=== PATIENT | female | born 1990 | race African-American/Black ===

== ENCOUNTER 2020-07-22 08:09 | Outpatient (REF) | payer OTHER, SELFPAY ==
[2020-07-22 13:48] LABS: CT PCR NOT DETECTED (Not Detect.); NG PCR NOT DETECTED (Not Detect.)
== END 2020-07-22 08:10 | disposition home or self-care (01) ==
LOC: HO.LAB 08:09
PROVIDERS: Visit Provider Advanced Practice Midwife
DX: Z01.419 Encounter for gynecological examination (general) (routine) without abnormal findings (principal); Z31.69 Encounter for other general counseling and advice on procreation; Z20.2 Contact with and (suspected) exposure to infections with a predominantly sexual mode of transmission
CPT/HCPCS: 87491; 87591

== ENCOUNTER 2021-06-01 08:28 | Outpatient (REF) | payer OTHER, SELFPAY ==
[2021-06-01 11:19] LABS: Hematocrit 30.7 % (37-47); Hemoglobin 9.5 g/dl (12.0-16.0)
[2021-06-01 12:00] LABS: Syphilis Screen Nonreactive (Nonreactive)
[2021-06-01 12:03] LABS: HIV AB/AG Nonreactive (Nonreactive); HIV Num 1 0.07 S/CO (0.00-0.99)
[2021-06-01 12:13] LABS: Alanine Aminotransferase 10 U/L (0-31); Albumin Level 4.6 g/dL (3.5-5.0); Alkaline Phosphatase 51 U/L (39-117); Anion Gap 12 (12-20); Aspartate Amino Transferase 12 U/L (5-31); Bilirubin Direct < 0.2 mg/dL (0.0-0.5); Bilirubin Total 0.4 mg/dL (0.0-1.0); Blood Urea Nitrogen 10 mg/dL (9-16); Calcium 9.5 mg/dL (8.4-10.2); Carbon Dioxide 25 mmol/L (22-29); Chloride 108 mmol/L (96-108); Cholesterol 133 mg/dL; Estimated Glomerular Filt Rate > 60; Glucose Fasting 92 mg/dL (60-99); HDL Cholesterol 51 mg/dL; LDL Cholesterol Calculated 74 mg/dl; Potassium 4.9 mmol/L (3.3-5.1); Sodium 140 mmol/L (135-145); Total Protein 7.3 g/dL (6.5-8.0); Triglycerides 44 mg/dL
[2021-06-01 12:27] LABS: HCG Quantitative < 2 mIU/mL
[2021-06-01 12:40] LABS: HBsAGNum1 0.23 S/CO (0.00-0.99); Hepatitis B Surface Antigen Negative (Negative); ~HepC Num1 0.15 S/CO (0.00-0.79); ~Hepatitis C Antibody Nonreactive (Nonreactive)
== END 2021-06-01 08:29 | disposition home or self-care (01) ==
LOC: HO.HMGCLDS 08:28
PROVIDERS: Advanced Practice Midwife; PCP Internal Medicine; Visit Provider Internal Medicine
DX: Z00.01 Encounter for general adult medical examination with abnormal findings (principal); Z11.4 Encounter for screening for human immunodeficiency virus [HIV]; Z11.59 Encounter for screening for other viral diseases; D64.9 Anemia, unspecified; Z20.2 Contact with and (suspected) exposure to infections with a predominantly sexual mode of transmission; N92.6 Irregular menstruation, unspecified
CPT/HCPCS: 36415; 80048; 80061; 80076; 84702; 85014; 85018; 86780; 86803; 87340; 87389

== ENCOUNTER 2021-06-15 08:38 | Outpatient (REF) | payer OTHER, SELFPAY ==
[2021-06-15 11:21] LABS: MANUAL DIFF FLAG NO
[2021-06-15 11:32] LABS: Basophils Absolute Auto 0.1 X10*3/uL (0.0-0.2); Basophils Percent Auto 0.9 % (0-2); Eosinophils Absolute Auto 0.2 X10*3/uL (0.0-0.4); Eosinophils Percent Auto 2.3 % (0-4); Hematocrit 31.7 % (37-47); Hemoglobin 9.5 g/dl (12.0-16.0); Imm Gran Abs Auto 0.02 X10*3/uL (0.00-0.03); Imm Gran Pct Auto 0.3 % (0.0-0.4); Lymphocytes Absolute Auto 2.1 X10*3/uL (1.2-4.9); Lymphocytes Percent Auto 27.3 % (20-40); Mean Corpuscular Hemoglobin 24.1 pg (27.0-33.0); Mean Corpuscular Volume 80.3 fL (80-98); Mean Platelet Volume 10.6 fL (9.4-12.3); Monocytes Absolute Auto 0.4 X10*3/uL (0.1-1.2); Monocytes Percent Auto 5.8 % (2-11); Neutrophils Absolute Auto 4.8 X10*3/uL (2.0-8.3); Neutrophils Percent Auto 63.4 % (45-73); Platelet Count 346 X10*3/uL (160-400); Red Blood Count 3.95 X10*6/uL (4.20-5.50); Red Cell Distribution Width 16.3 % (11.0-16.0); White Blood Count 7.5 X10*3/uL (4.8-10.8)
[2021-06-15 11:55] LABS: Iron 23 mcg/dL (30-160); Percent Iron Saturation 5 % (15-50); Total Iron Binding Capacity 420 mcg/dL (228-428); Unsaturated Iron Binding 397 ug/dL
[2021-06-15 12:04] LABS: Ferritin 6 ng/mL (10-122)
[2021-06-15 12:19] LABS: Vitamin B12 349 pg/mL (200-900)
== END 2021-06-15 08:39 | disposition home or self-care (01) ==
LOC: HO.HMGCLDS 08:38
PROVIDERS: PCP Internal Medicine; Visit Provider Internal Medicine
DX: D64.9 Anemia, unspecified (principal)
CPT/HCPCS: 36415; 82607; 82728; 83540; 85025

== ENCOUNTER 2021-07-25 08:10 | Outpatient (REF) | payer OTHER, SELFPAY ==
[2021-07-25 14:36] LABS: CT PCR NOT DETECTED (Not Detect.); NG PCR NOT DETECTED (Not Detect.)
== END 2021-07-25 08:11 | disposition home or self-care (01) ==
LOC: HO.LAB 08:10
PROVIDERS: Visit Provider Advanced Practice Midwife
DX: Z01.411 Encounter for gynecological examination (general) (routine) with abnormal findings (principal); Z11.3 Encounter for screening for infections with a predominantly sexual mode of transmission; N92.0 Excessive and frequent menstruation with regular cycle; N85.2 Hypertrophy of uterus; Z20.2 Contact with and (suspected) exposure to infections with a predominantly sexual mode of transmission
CPT/HCPCS: 81025; 87491; 87591

== ENCOUNTER 2021-07-26 08:25 | Outpatient (REF) | payer OTHER, SELFPAY ==
[2021-07-26 11:34] LABS: Hematocrit 38.1 % (37.0-47.0); Mean Corpuscular HGB Conc 31.5 g/dl (31.0-35.0); Mean Corpuscular Hemoglobin 26.8 pg (27.0-33.0); Mean Corpuscular Volume 85.2 fL (80.0-98.0); Mean Platelet Volume 10.6 fL (9.4-12.3); Platelet Count 280 X10*3/uL (160-400); Red Blood Count 4.47 X10*6/uL (4.20-5.50); Red Cell Distribution Width 19.2 % (11.0-16.0); White Blood Count 7.6 X10*3/uL (4.8-10.8)
[2021-07-26 12:04] LABS: TSH reflex Free T4 0.94 uIU/mL (0.32-4.0)
== END 2021-07-26 08:26 | disposition home or self-care (01) ==
LOC: HO.HMGCLDS 08:25
PROVIDERS: PCP Internal Medicine; Visit Provider Advanced Practice Midwife
DX: N85.2 Hypertrophy of uterus (principal)
CPT/HCPCS: 36415; 84443; 85027

== ENCOUNTER 2021-08-04 08:28 | Outpatient (REF) | payer OTHER, SELFPAY ==
--- NOTE | ~2021-08-04 | US_ITS ---
EXAMINATION: US PELVIS CLINICAL INFORMATION: N85.2 - Hypertrophy of uterus. Age 31. LMP 07/27/2021. COMPARISON: None TECHNIQUE: Ultrasound of the pelvis is performed using both transabdominal and transvaginal transducers along with Doppler. Transvaginal imaging is performed due to inadequate visualization transabdominally. FINDINGS: Uterus: The uterus is anteverted, anteflexed, and enlarged measuring 11.1 x 7.4 x 8.9 cm. Volume 383 mL. The endometrial stripe is not optimally visualized. It is estimated at 1.2 cm double wall thickness. There is coarsening of the myometrial echotexture and there are at least 2 dominant fibroids. The larger fibroid is anterior fundal and body extending from subserous to submucous depth and measuring 7.2 x 4.6 x 6.6 cm. The smaller dominant fibroid is posterior fundal subserous measuring 4.1 x 2.7 x 3.6 cm. There is a small nabothian cysts in the cervix measuring approximately 0.4 cm. Adnexa: Both ovaries are visualized. There is normal color flow to the adnexa. There is no ovarian torsion. There is trace fluid in the cul-de-sac. Right ovary measures 2.9 x 1.3 x 1.3 cm. Left ovary measures 3.4 x 2.1 x 2.8 cm. Dominant follicle is present within the left ovary measuring 1.7 x 0.9 cm. US/US pelvic and transvaginal IMPRESSION: 1. Uterus: Enlarged with at least 2 dominant fibroids, largest 7.2 cm and smaller 4.1 cm. 2. Ovaries: No adnexal mass. Trace pelvic fluid cul-de-sac.
== END 2021-08-04 08:29 | disposition home or self-care (01) ==
LOC: HO.HMGCX 08:28
PROVIDERS: PCP Internal Medicine; Visit Provider Advanced Practice Midwife
DX: N85.2 Hypertrophy of uterus (principal)
CPT/HCPCS: 76830; 76856

== ENCOUNTER → 2021-08-11 11:19 | Outpatient (BNVA) | payer OTHER, SELFPAY | PROVIDERS: PCP Internal Medicine; Visit Provider Advanced Practice Midwife ==

== ENCOUNTER 2021-11-09 08:37 | Outpatient (REF) | payer OTHER, SELFPAY ==
[2021-11-09 11:32] LABS: MANUAL DIFF FLAG NO
[2021-11-09 11:43] LABS: Basophils Absolute Auto 0.1 X10*3/uL (0.0-0.2); Basophils Percent Auto 0.7 % (0-2); Eosinophils Absolute Auto 0.1 X10*3/uL (0.0-0.4); Eosinophils Percent Auto 1.5 % (0-4); Hematocrit 38.7 % (37.0-47.0); Hemoglobin 12.9 g/dl (12.0-16.0); Imm Gran Abs Auto 0.03 X10*3/uL (0.00-0.03); Imm Gran Pct Auto 0.3 % (0.0-0.4); Lymphocytes Absolute Auto 2.2 X10*3/uL (1.2-4.9); Lymphocytes Percent Auto 22.9 % (20-40); Mean Corpuscular HGB Conc 33.3 g/dl (31.0-35.0); Mean Corpuscular Hemoglobin 29.8 pg (27.0-33.0); Mean Corpuscular Volume 89.4 fL (80.0-98.0); Mean Platelet Volume 10.2 fL (9.4-12.3); Monocytes Absolute Auto 0.5 X10*3/uL (0.1-1.2); Neutrophils Absolute Auto 6.6 x10*3/uL (2.0-8.3); Neutrophils Percent Auto 69.6 % (45-73); Platelet Count 302 X10*3/uL (160-400); Red Blood Count 4.33 X10*6/uL (4.20-5.50); Red Cell Distribution Width 12.4 % (11.0-16.0); White Blood Count 9.4 X10*3/uL (4.8-10.8)
[2021-11-09 12:12] LABS: Alanine Aminotransferase 12 U/L (0-31); Aspartate Amino Transferase 12 U/L (5-31); Cholesterol 154 mg/dL; Glucose Fasting 96 mg/dL (60-99); HDL Cholesterol 49 mg/dL; LDL Cholesterol Calculated 92 mg/dl; Triglycerides 68 mg/dL
[2021-11-09 12:18] LABS: Vitamin D 25-OH Total 20.1 ng/mL (>30)
== END 2021-11-09 08:38 | disposition home or self-care (01) ==
LOC: HO.HMGCLDS 08:37
PROVIDERS: PCP Internal Medicine; Visit Provider Internal Medicine
DX: Z00.01 Encounter for general adult medical examination with abnormal findings (principal); D21.9 Benign neoplasm of connective and other soft tissue, unspecified; Z86.2 Personal history of diseases of the blood and blood-forming organs and certain disorders involving the immune mechanism
CPT/HCPCS: 36415; 80061; 82306; 82947; 84450; 84460; 85025

== ENCOUNTER 2022-10-04 11:31 | Outpatient (REF) | payer OTHER, SELFPAY ==
[2022-10-10 16:30] LABS: HPV mRNA E6/E7 rflx Not Detected (Not Detected)
== END 2022-10-04 11:32 | disposition home or self-care (01) ==
LOC: HO.LNP 11:31
PROVIDERS: PCP Internal Medicine; Visit Provider Advanced Practice Midwife
DX: Z01.419 Encounter for gynecological examination (general) (routine) without abnormal findings (principal); Z11.51 Encounter for screening for human papillomavirus (HPV)
CPT/HCPCS: 87624; 88142

== ENCOUNTER 2022-10-30 10:17 | Outpatient (REF) | payer OTHER, SELFPAY ==
--- NOTE | ~2022-10-30 | US_ITS ---
EXAMINATION: US PELVIS CLINICAL INFORMATION: Excessive and frequent menstruation. COMPARISON: None TECHNIQUE: Ultrasound of the pelvis is performed using both transabdominal and transvaginal transducers along with Doppler. Transvaginal imaging is performed due to inadequate visualization transabdominally. FINDINGS: UTERUS: The uterus is anteverted and measures 8.8 x 3.1 x 5.0 cm cm. At the time of the prior study, the patient had uterine fibroids but has subsequently undergone myomectomy and no uterine fibroids are seen at this time. The double wall endometrial thickness is 0.3 mm. ADNEXA: Both ovaries are visualized. There is normal color flow to the adnexa. There is no ovarian torsion. There is no pelvic ascites or fluid collection. Right ovary measures 3.3 x 2.0 x 1.8 cm for a volume of 6.2 mL. Left ovary measures 3.2 x 2.8 x 2.2 cm for a volume of 10.3 mL. US/US pelvic and transvaginal IMPRESSION: Negative exam. Previously seen uterine fibroids are no longer present status post myomectomy.
[2022-10-30 11:38] LABS: Hematocrit 35.9 % (37.0-47.0); Hemoglobin 11.5 g/dl (12.0-16.0); Mean Corpuscular Hemoglobin 27.2 pg (27.0-33.0); Mean Corpuscular Volume 84.9 fL (80.0-98.0); Platelet Count 372 X10*3/uL (160-400); Red Blood Count 4.23 X10*6/uL (4.20-5.50); Red Cell Distribution Width 12.9 % (11.0-16.0); White Blood Count 8.9 X10*3/uL (4.8-10.8)
[2022-10-30 12:16] LABS: Thyroid Stimulating Hormone 1.22 uIU/mL (0.32-4.0)
== END 2022-10-30 10:18 | disposition home or self-care (01) ==
LOC: HO.US 10:17
PROVIDERS: PCP Internal Medicine; Visit Provider Advanced Practice Midwife
DX: N92.1 Excessive and frequent menstruation with irregular cycle (principal); N92.0 Excessive and frequent menstruation with regular cycle
CPT/HCPCS: 36415; 76830; 76856; 84443; 85027

== ENCOUNTER → 2022-11-15 14:59 | Outpatient (BNVA) | payer OTHER, SELFPAY | PROVIDERS: PCP Internal Medicine; Visit Provider Advanced Practice Midwife | DX: Z13.89 Encounter for screening for other disorder (principal) ==

== ENCOUNTER 2023-06-30 09:30 | Outpatient (REF) | payer OTHER, SELFPAY | END 2023-06-30 09:31 | disposition home or self-care (01) | LOC: HO.HMGCLDS 09:30 | PROVIDERS: PCP Internal Medicine; Visit Provider Internal Medicine | DX: Z00.01 Encounter for general adult medical examination with abnormal findings (principal); Z86.2 Personal history of diseases of the blood and blood-forming organs and certain disorders involving the immune mechanism | CPT/HCPCS: 36415; 83540; 85025 ==

== ENCOUNTER 2023-10-11 09:01 | Outpatient (REF) | payer OTHER, SELFPAY ==
[2023-10-11 12:36] LABS: CT PCR NOT DETECTED (Not Detect.); NG PCR NOT DETECTED (Not Detect.)
== END 2023-10-11 09:02 | disposition home or self-care (01) ==
LOC: HO.LNP 09:01
PROVIDERS: Visit Provider Advanced Practice Midwife
DX: Z20.2 Contact with and (suspected) exposure to infections with a predominantly sexual mode of transmission (principal)
CPT/HCPCS: 0353U

== ENCOUNTER 2023-10-11 09:01 | Outpatient (AMB) | payer OTHER, SELFPAY ==
--- NOTE | 2023-10-11 09:09 | MHC.OFFVIS ---
Intake Vital Signs 10/11/23 09:10 Height 5 ft 3 in Weight 169 lb BMI 29.9 BP 108/70 Intake Visit Reasons: Annual Biscuit Packer: Biscuit Packer Present (Radha) Allergies No Known Allergies Allergy (Verified 10/11/23 09:10) Is last menstrual period known: Yes Last menstrual period: 09/20/23 HPI HPI Comments History of Present Illness Details She is a premenopausal woman presenting for annual examination. Doing well with no concerns. She tries to eat healthy and stays active with exercise. Regular monthly menses, lasting 6d, heavy 1-2d. No cramping, and less bleeding since myomectomies. Currently is sexually active. She denies vaginal itching and irritation. STI screening offered; she accepts. Currently not taking any control, is open to a future if it happens. Denies family history of breast, ovarian or colon cancer. Last pap smear 2022, negative. [facility] Medical History History of vitamin D deficiency Annual visit for general adult medical examination with abnormal findings History of anemia Dysfunctional uterine bleeding Surgical History H/O myomectomy Family History Mother Asthma Maternal Grandmother Diabetes mellitus HIV (human immunodeficiency virus infection) Social History (Updated 10/11/23 @ 09:13 by KATINA Lopez) Household Members: Significant Other Household Members Other:: nephew Housing: House Alcohol intake: current Alcohol intake frequency: holidays/special occasions only Patient Tobacco Use Status: Never used Tobacco e-Cigarette/Vaping Use: Never Used service: No Current occupational status: employed Current occupation: [employer] Sexual orientation: Straight/Heterosexual Gender identity: Female Cognitive needs: No Hearing needs: No Vision needs: Yes Female Reproductive History Menstrual Age of Menarche: 14 Date of last menstrual period: 09/20/23 control method: none Total pregnancies: 0 Date of last pap smear: 10/04/22 (neg pap and hpv) Review of Systems Const All systems reviewed & are unremarkable except as noted in HPI and below Reports as per HPI Eyes Reports no additional complaints ENT Reports no additional complaints Card Reports no additional complaints Resp Reports no additional complaints GI Reports as per HPI and Reports no additional complaints Reports as per HPI Musc Reports no additional complaints Skin/Breast Reports as per HPI Neuro Reports no additional complaints Psych Reports no additional complaints Endo Reports no additional complaints Rafael/Lymph Reports no additional complaints Aller/Immun Reports no additional complaints Physical Exam Vital Signs: Last Vital Signs BP 108/70 10/11/23 09:10 BMI result Body Mass Index 29.9 Const General: cooperative, healthy appearing, no acute distress, well developed and alert Orientation/consciousness: patient oriented x3 HEENT Head: Yes normal to inspection Eyes General: appearance normal, both eyes and all related structures Neck Neck: Yes normal visual inspection Thyroid: Thyroid normal Chest Other: Asymmetrical axillary tissue prominent on her left no masses nontender, patient reports this is her norm but increased in size with weight gain. Chest palpation & inspection: normal inspection of the chest and other (no puckering, dimpling, peau de orange, retraction, discharge, masses) Breast/axilla inspection: normal inspection of the breasts Breast/axilla palpation: normal palpation of the breasts Resp Effort & Inspection: normal respiratory effort GI Inspection: Yes normal to inspection Palpation (GI): Soft to palpation Rectal Exam - Female: deferred General: Yes bladder normal to palpation External Female Exam: normal external appearance and normal appearance of the urethra Speculum Exam - Vagina: normal appearance of the vagina, normal palpation and normal vaginal discharge Speculum Exam - Cervix: normal appearance of the cervix and normal palpation Bimanual exam- vagina & uterus: normal bimanual exam, normal palpation, uterine size normal, bladder normal to palpation, normal palpation and non-tender Bimanual Exam- Adnexa, other: no masses Skin General skin exam: no rashes or lesions noted Rashes: no rashes Neuro General: patient oriented x3 Cognition (Neuro): normal cognition Extrem General: Yes normal to inspection Psych Attitude: cooperative Thought process: Normal thought process present Assessment & Plan Assessment & Plan (1) Encounter for well woman exam with routine gynecological exam: Code(s): Z01.419 - Encounter for gynecological examination (general) (routine) without abnormal findings Plan Discussed: Current recommendations for pap smears per ASCCP guidelines. Breast awareness and periodic breast exams. Maintain a healthy lifestyle including a well balanced diet and routine exercise. Start vitamins for the prevention of neural tube defects. If late for menses do a home test if positive follow-up here for early evaluation. Advised she would be at high risk for due to the myomectomies and would need to be seen at [facility] for care. She declines STD blood work. Discussed: Monitor menstrual cycles, report any unscheduled bleeding, bleeding episodes <21 days apart or heavy/prolonged menstrual bleeding. Additional if any pelvic pain pressure, call the office for a follow up for any concerns. Discussed the role of weight loss also wearing a side supporting bra. If any changes or concerns to follow-up. All of her questions and concerns were addressed to the best of my ability. RTO in one year for annual postal delivery officer examination. This note is constructed using voice recognition software. While every effort has been made to ensure accuracy, utility person errors may have been included. Medications: New PNV,calcium 53-mtwp-tvosi acid 27 mg iron- 1 mg ( Vitamins Plus Low Iron) 1 tab PO DAILY 90 tabs 4RF Coding Level of Care Code Est Pt Prev Care 18-39y(28682) Diagnoses Encounter for well woman exam with routine gynecological exam Z01.419
[2023-10-11 09:10] VITALS: BP 108/70; BMI 29.9
== END 2023-10-11 09:44 | disposition home or self-care (01) ==
PROVIDERS: Visit Provider Advanced Practice Midwife
DX: Z01.419 Encounter for gynecological examination (general) (routine) without abnormal findings (principal)
CPT/HCPCS: 99395

== ENCOUNTER 2023-11-19 08:20 | Outpatient (AMB) | payer OTHER, SELFPAY ==
[2023-11-19 08:23] VITALS: BP 112/66; PULSE 72; O2SAT 100; BMI 30.1
--- NOTE | 2023-11-19 08:23 | MHC.PC.OV ---
Vital Signs 11/19/23 08:23 Height 5 ft 3 in Weight 170 lb BMI 30.1 BP 112/66 Blood Pressure Location Rt brachial Position Sitting Pulse 72 Pulse Source Pulse Oximeter Pulse Oximetry (%) 100 Oxygen Delivery Method Room Air Intake Visit Reasons: Annual PE Intake Note: Pt is here today for her PE: Lasdt papsmear 10/04/23 Is last menstrual period known: Yes Last menstrual period: 11/12/23 Allergies No Known Allergies Allergy (Verified 11/19/23 08:31) Medication List - Last Reconciled 11/19/23 by Karli Dale MD No Known Home Meds Tobacco use date assessed: 11/19/23 Dental Screening Dental Screen Date: 11/19/23 Did you have a dental visit in the last 12 months?: Yes Did you have a dental problem in the last 6 months where you did not have access to dental care?: No Was dental information given to patient?: Patient has dentist HPI Annual PE HPI Details 33-year-old lady here today for her physical exam. She has history of iron deficiency anemia likely due to uterine fibroids which was s/p myomectomy in 2021. Has been feeling well with no complaints at present time. Still however has periods that last at least 6-7 days with occasional passage of blood clots. She goes to [facility] for her routine Pap and pelvic exam, last done 10/04/2022 with negative finding. Patient states that she has been trying to get , was checked by her OB with no abnormality seen in her ovaries and fallopian tubes, fibroids removed. Her however has not been evaluated. [facility] Medical History (Updated 11/19/23 @ 08:46 by Karli Dale MD) Obesity (BMI 30.0-34.9) History of vitamin D deficiency Annual visit for general adult medical examination with abnormal findings History of anemia Dysfunctional uterine bleeding Surgical History H/O myomectomy Family History Mother Asthma Maternal Grandmother Diabetes mellitus HIV (human immunodeficiency virus infection) Social History Household Members: Significant Other Household Members Other:: nephew Housing: House Alcohol intake: current Alcohol intake frequency: holidays/special occasions only Patient Tobacco Use Status: Never used Tobacco e-Cigarette/Vaping Use: Never Used service: No Current occupational status: employed Current occupation: [employer] Sexual orientation: Straight/Heterosexual Gender identity: Female Cognitive needs: No Hearing needs: No Vision needs: Yes Female Reproductive History Menstrual Age of Menarche: 14 Date of last menstrual period: 11/12/23 Date of last pap smear: 10/04/22 Questionnaire PHQ-9 Over the last 2 weeks, how often have you been bothered by any of the following problems? 1. Little interest or pleasure in doing things: not at all 2. Feeling down, depressed, or hopeless: not at all 3. Trouble falling or staying asleep, or sleeping too much: not at all 4. Feeling tired or having little energy: not at all 5. Poor appetite or overeating: not at all 6. Feeling bad about yourself - or that you are a failure or have let yourself or your family down: not at all 7. Trouble concentrating on things, such as reading the newspaper or watching television: not at all 8. Moving or speaking so slowly that other people could have noticed. Or the opposite - being so fidgety or restless that you have been moving around a lot more than usual: not at all 9. Thoughts that you would be better off or of hurting yourself in some way: not at all Total score: 0 Depression Screening Interpretation: Negative Depression Screening Done: Yes 41028 - PHQ-9 Billing: Yes Source: Developed by Drs. Ravindra Jean Baptiste, Naya Sanders, Ry Aparicio and colleagues, with an educational stephanie from [employer]. Thrive Questionnaire Date Thrive assessed: 11/19/23 I am a: Patient What is your living situation today?: I have a steady place to live Within the past 12 months, did the food you bought not last and you didn't have the money to get more?: Never true Within the past 12 months, did you worry whether your food would run out before you got money to buy more?: Never true Do you have trouble paying for medicines?: No Do you have trouble getting transportation to medical appointments?: No Do you have trouble paying your heating and electricity bill?: No Do you have trouble taking care of your child, family member or friend?: No Do you have trouble with day-to-day activities such as bathing, preparing meals, shopping, managing finances, etc.?: No Are you currently unemployed and looking for a job?: No Are you interested in more education?: No THRIVE Score: 0 AUDIT C Alcohol Use Questionnaire (AUDIT-C) 1. How often do you have a drink containing alcohol?: Monthly or less 2. How many drinks containing alcohol do you have on a typical day when you are drinking?: 1 or 2 3. How often do you have six or more drinks on one occasion?: Never Total Score: 1 MAUREEN-7 AMB Questionnaire MAUREEN-7 Date MAUREEN - 7 assessed: 11/19/23 Feeling nervous, anxious, or on edge: 0 = Not at all Not being able to stop or control worryin = Not at all Worrying too much about different things: 0 = Not at all Trouble relaxin = Not at all Being so restless that it is hard to sit still: 0 = Not at all Becoming easily annoyed or irritable: 0 = Not at all Feeling afraid as if something awful might happen: 0 = Not at all Total MAUREEN-7 score (0-4 normal; 5-9 mild; 10-14 moderate; 15-21 severe): 0 Source: Developed by Drs. Ravindra Jean Baptiste, Naya Sanders, Ry Aparicio and colleagues, with an educational stephanie from [employer]. MAUREEN-7 Assessment Billing MAUREEN-7 Assessment Tool: MAUREEN-7 Assessment 38635 Review of Systems Const Denies body aches, Denies fatigue, Denies fever(s), Denies headache(s), Denies weakness and Reports weight gain Eyes Details: She goes to [facility] for routine eye exam,? Suspect glaucoma Denies change in vision, Denies eye discharge and Denies itchy eyes ENT Denies dizziness, Denies headache(s), Denies nasal congestion, Denies nasal discharge and Denies sore throat Card Denies chest pain, Denies lightheadedness, Denies palpitations and Denies dyspnea Resp Denies chest congestion, Denies cough, Denies dyspnea and Denies wheezing GI Denies abdominal pain, Denies change in bowel habits and Denies heartburn Details: Patient states that her menstrual. Has been regular, still little heavy duty 1st 2 days but clots has resolved and menstrual cramps has improved Denies urinary frequency, Denies dysuria and Denies urinary urgency Musc Reports no additional complaints Skin/Breast Denies lesions and Denies rash Neuro Denies dizziness, Denies headache(s) and Denies weakness Psych Reports no additional complaints Endo Denies fatigue, Denies polydipsia, Denies polyuria and Denies palpitations Rafael/Lymph Denies easy bruising Aller/Immun Denies itchy eyes, Denies seasonal rhinorrhea and Denies wheezing Physical exam (Primary Care) Vital Signs: Last Vital Signs Pulse 72 11/19/23 08:23 BP 112/66 11/19/23 08:23 Pulse Ox 100 11/19/23 08:23 Oxygen Delivery Method Room Air 11/19/23 08:23 BMI result Body Mass Index 30.1 Tobacco/Smoking Status: Tobacco use Status Tobacco use date assessed 11/19/23 11/19/23 08:26 Patient Tobacco Use Status Never used Tobacco 11/19/23 08:26 e-Cigarette/Vaping Use Never Used 11/19/23 08:26 PHQ-9: PHQ-9 Score PHQ-9: Total score 0 11/19/23 08:30 Depression Screening Interpretation: Negative Thrive Assessment: Date of Thrive Assessment Date Thrive assessed 11/19/23 11/19/23 08:30 Const Other: Alert oriented x3, no acute cardiorespiratory distress noted , ambulatory with normal gait Orientation/consciousness: patient oriented x3 [facility] Head: Yes normocephalic and Yes atraumatic Ears: hearing grossly normal bilaterally, TM's normal bilaterally and EAC's normal General nose exam: Normal external nose present and No nasal discharge present Mouth: Normal oral and palatal mucosa present, oropharynx normal and moist mucous membranes Eyes General: appearance normal, both eyes and all related structures Neck Neck: Yes full ROM, Yes no lymphadenopathy, No no meningeal signs, Yes supple and No anterior neck swelling Thyroid: Thyroid normal Chest Breast/axilla palpation: normal palpation of the breasts Resp Auscultation: clear to auscultation bilaterally Cardio Other: S1-S2 present regular rate and rhythm, no murmurs GI Other: Normal bowel sounds, soft, nontender, no mass palpated General: Yes no CVA tenderness and Yes deferred (Sees her own OBGYN) Back/Spine/Pelvis Back: no CVA tenderness and No back tenderness Skin General skin exam: no rashes or lesions noted Neuro General: patient oriented x3, gait normal, tone normal, moves all extremities, Normal light touch and pain sensation, No no meningeal signs, no focal motor deficits and CN's II-XI intact bilaterally Extrem General: Yes full ROM, Yes no joint enlargement, Yes no pedal edema, Yes no calf tenderness and Yes normal gait Psych Appearance: grossly normal Mental Status: mental status grossly normal Speech and movement: Normal speech and movement present Affect: normal affect Attitude: cooperative Thought process: Normal thought process present Assessment and Plan Assessment & Plan (1) Encounter for general adult medical examination with abnormal findings: Code(s): Z00.01 - Encounter for general adult medical examination with abnormal findings Plan: Will check appropriate labs. Continue with regular dental visit every 6 months and regular eye exams, at least every 2 years, goes to [facility]. Take adequate calcium in diet and vitamin-D 3 at 2000 IU per cap once a day, in addition to weight-bearing exercises to help maintain good muscle tone and weight control. Instructed to do self-breast exam, and recommended to get yearly mammogram, starting at age 40. She is up-to-date with her cervical cancer screening and pelvic exam, goes to [facility], with last Pap smear done 2022 showing negative findings. Patient has had COVID vaccines in the past but does not want to get the booster, declines getting flu vaccines, up-to-date with her Tdap (2) History of vitamin D deficiency: Code(s): Z86.39 - Personal history of other endocrine, nutritional and metabolic disease Plan: Ordered vitamin-D level to be checked (3) History of anemia: Code(s): Z86.2 - Personal history of diseases of the blood and blood-forming organs and certain disorders involving the immune mechanism Plan: Ordered CBC with iron profile (4) Obesity (BMI 30.0-34.9): Code(s): E66.9 - Obesity, unspecified Plan: Recommended focusing on improving your health instead of dieting. : Eat Mediterranean diet, limit foods high in fat, sugar, and calories, eat slowly, pay attention to portion sizes, plan your meals ahead of time, start regular physical activity 150 minutes of moderate intensity exercise or 90 minutes/week of vigorous exercise Orders: Orders Basic Metabolic Panel Fasting Today Z00. - Encounter for general adult medical examination with abnormal findings, Z86.2 - Personal history of diseases of the blood and blood-forming organs and certain disorders involving the immune mechanism, Z86.39 - Personal history of other endocrine, nutritional and metabolic disease Complete Blood Count Auto Diff Today Z00. - Encounter for general adult medical examination with abnormal findings, Z86.2 - Personal history of diseases of the blood and blood-forming organs and certain disorders involving the immune mechanism, Z86.39 - Personal history of other endocrine, nutritional and metabolic disease IRON PROFILE Today Z00. - Encounter for general adult medical examination with abnormal findings, Z86.2 - Personal history of diseases of the blood and blood-forming organs and certain disorders involving the immune mechanism, Z86.39 - Personal history of other endocrine, nutritional and metabolic disease Lipid Panel Today E66.9 - Obesity, unspecified, Z00. - Encounter for general adult medical examination with abnormal findings, Z86.2 - Personal history of diseases of the blood and blood-forming organs and certain disorders involving the immune mechanism, Z86.39 - Personal history of other endocrine, nutritional and metabolic disease Vitamin D 25-OH Total Today Z00. - Encounter for general adult medical examination with abnormal findings, Z86.2 - Personal history of diseases of the blood and blood-forming organs and certain disorders involving the immune mechanism, Z86.39 - Personal history of other endocrine, nutritional and metabolic disease Review Flu Vaccine not done: patient reason (Patient declined) Coding Level of Care Code Est Pt Prev Care 18-39y(04765) Diagnoses Encounter for general adult medical examination with abnormal findings Z00. History of vitamin D deficiency Z86.39 History of anemia Z86.2 Obesity (BMI 30.0-34.9) E66.9 Additional Codes MAUREEN-7 Assessment Billing - MAUREEN-7 Assessment Tool: MAUREEN-7 Assessment 57738 ([id number])
== END 2023-11-19 13:15 | disposition home or self-care (01) ==
PROVIDERS: PCP Internal Medicine; Visit Provider Internal Medicine
DX: Z00.00 Encounter for general adult medical examination without abnormal findings (principal); Z86.39 Personal history of other endocrine, nutritional and metabolic disease; E66.9 Obesity, unspecified; Z68.30 Body mass index [BMI] 30.0-30.9, adult; Z86.2 Personal history of diseases of the blood and blood-forming organs and certain disorders involving the immune mechanism
CPT/HCPCS: 99395

== ENCOUNTER 2024-10-14 09:10 | Outpatient (AMB) | payer OTHER, SELFPAY ==
--- NOTE | 2024-10-14 09:16 | MHC.OFFVIS ---
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 Doing well with animal care taker concerns: Regular monthly menses heavy 2-3/6d. History of myomectomy in 2021. Currently is sexually active. Not interested in control open to a future . She denies vaginal itching and irritation. STI screening offered; she accepts. She tries to eat healthy and stays active with exercise. Denies family history of breast, ovarian or colon cancer. Last pap smear 2022, negative. ON LICENSE OF [facility] Medical History (Updated 10/14/24 @ 12:50 by Aleksandra Vasques CNM) Enlarged uterus Obesity (BMI 30.0-34.9) History of vitamin D deficiency Annual visit for general adult medical examination with abnormal findings History of anemia Dysfunctional uterine bleeding Surgical History H/O myomectomy Family History Mother Asthma Maternal Grandmother Diabetes mellitus HIV (human immunodeficiency virus infection) Social History Household Members: Significant Other Household Members Other:: nephew Housing: House Alcohol intake: current Alcohol intake frequency: holidays/special occasions only Patient Tobacco Use Status: Never used Tobacco e-Cigarette/Vaping Use: Never Used service: No Current occupational status: employed Current occupation: [employer] Sexual orientation: Straight/Heterosexual Gender identity: Female Cognitive needs: No Hearing needs: No Vision needs: Yes Female Reproductive History Menstrual Age of Menarche: 14 Duration of menses: 6-7 days Date of last menstrual period: 09/20/24 control method: none Total pregnancies: 0 Date of last pap smear: 10/04/22 (neg pap and hpv) Review of Systems Const All systems reviewed & are unremarkable except as noted in HPI and below Reports as per HPI Eyes Reports no additional complaints ENT Reports no additional complaints Card Reports no additional complaints Resp Reports no additional complaints GI Reports as per HPI and Reports no additional complaints Reports as per HPI Musc Reports no additional complaints Skin/Breast Reports as per HPI Neuro Reports no additional complaints Psych Reports no additional complaints Endo Reports no additional complaints Rafael/Lymph Reports no additional complaints Aller/Immun Reports no additional complaints Physical Exam Vital Signs: Last Vital Signs BP 114/70 10/14/24 09:21 BMI result Body Mass Index 28.5 Const General: cooperative, healthy appearing, no acute distress, well developed and alert Orientation/consciousness: patient oriented x3 HEENT Head: Yes normal to inspection Eyes General: appearance normal, both eyes and all related structures Neck Neck: Yes normal visual inspection Thyroid: Thyroid normal Chest Chest palpation & inspection: normal inspection of the chest and other (no puckering, dimpling, peau de orange, retraction, discharge, masses) Breast/axilla inspection: normal inspection of the breasts Breast/axilla palpation: normal palpation of the breasts Resp Effort & Inspection: normal respiratory effort GI Inspection: Yes normal to inspection Palpation (GI): Soft to palpation Rectal Exam - Female: deferred General: Yes bladder normal to palpation External Female Exam: normal external appearance and normal appearance of the urethra Speculum Exam - Vagina: normal appearance of the vagina, normal palpation and normal vaginal discharge Speculum Exam - Cervix: normal appearance of the cervix and normal palpation Bimanual exam- vagina & uterus: normal bimanual exam, normal palpation, bladder normal to palpation, normal palpation, non-tender and enlarged Bimanual Exam- Adnexa, other: no masses Skin General skin exam: no rashes or lesions noted Rashes: no rashes Neuro General: patient oriented x3 Cognition (Neuro): normal cognition Extrem General: Yes normal to inspection Psych Attitude: cooperative Thought process: Normal thought process present Assessment & Plan Assessment & Plan (1) Well woman exam with routine gynecological exam: Code(s): Z01.419 - Encounter for gynecological examination (general) (routine) without abnormal findings Category: Medical (2) Fibroids: Code(s): D21.9 - Benign neoplasm of connective and other soft tissue, unspecified Category: Medical (3) Enlarged uterus: Code(s): N85.2 - Hypertrophy of uterus Category: Medical Plan: Discussed: Obtaining pelvic ultrasound due to the enlarged uterus, rule out additional fibroids since surgery 2021 for myomectomy. Beta HCG ordered. Follow up in person pending ultrasound findings, appointment to be scheduled. Plan Discussed: Current recommendations for pap smears per ASCCP guidelines. Breast awareness and periodic breast exams. Maintain a healthy lifestyle including a well balanced diet and routine exercise. Start vitamins for the benefit of folic acid prevention of neural tube defects. Patient verbalizes understanding and agrees to the plan of care. She was given opportunity to ask questions and all questions were answered to the best of my ability. RTO in one year for annual animal care taker examination. Additional: Total time I personally spent on visit and management today: ?20 minutes. Time spent included review of pertinent office notes in the electronic health record; review of laboratory and imaging results; review of personal family medical history; discussing diagnosis and plan of care with the patient; documenting the encounter in the EMR. This note is constructed using voice recognition software. While every effort has been made to ensure accuracy, lens cutter errors may have been included. Orders: Orders Thyroid Stimulating Hormone Today N92.1 - Excessive and frequent menstruation with irregular cycle US pelvic and transvaginal Today D21.9 - Benign neoplasm of connective and other soft tissue, unspecified Bacterial Vaginosis Panel Today R10.2 - Pelvic and perineal pain HCG Quantitative Today N85.2 - Hypertrophy of uterus CT NG by PCR Today R10.2 - Pelvic and perineal pain Medications: New PNV,calcium 75-svxp-kckan acid 27 mg iron- 1 mg ( Vitamins Plus Low Iron) 1 tab PO DAILY 90 tabs 4RF Coding Level of Care Code Est Pt Level 2 (41222) Est Pt Prev Care 18-39y(11599) Diagnoses Well woman exam with routine gynecological exam Z01.419 Fibroids D21.9 Enlarged uterus N85.2
[2024-10-14 09:21] VITALS: BP 114/70; BMI 28.5
== END 2024-10-14 10:58 | disposition home or self-care (01) ==
PROVIDERS: PCP Internal Medicine; Visit Provider Advanced Practice Midwife
DX: Z01.419 Encounter for gynecological examination (general) (routine) without abnormal findings (principal); D21.9 Benign neoplasm of connective and other soft tissue, unspecified; N85.2 Hypertrophy of uterus
CPT/HCPCS: 99213; 99395; 99459

== ENCOUNTER 2024-10-14 09:10 | Outpatient (REF) | payer OTHER, SELFPAY ==
--- OUTSIDE RECORDS SUMMARY | 2024-10-14 11:20 | XMS_ITS | Data Portability ---
Author [facility] [id number] [address] [place] [address] Assessment No assessment recorded. Plan of Treatment Reminders Order Date Submit Date Provider Last Modified By Organization Details Last Modified Time Details Appointments None record ed. Lab None record ed. Referral None record ed. Procedures None record ed. Surgeries None record ed. Imaging None record ed. Medication Orders None record ed. Patient TargetsNo targets recorded. Patient Instructions Encounter Date Encounter Id Patient Instructions Last Modified By Organization Details Last Modified Time 10/11/2022 [id number] cuts closed with adhesives: care instructions Not available 10/11/2022 13:19:43 wound care* [email or web address] Not available 09/25 10:40:14 Discharge Instructions - Wound Care - Wash the wound gently with soap and warm water once daily. Otherwise keep wound clean, dry and covered with a dressing. - Elevate to decrease pain and improve healing. - Minimize use of affected body part. - Return here or see your doctor for any sign of infection, including redness, swelling, pus or increased pain. - Return for wound check in 2 or 3 days. Not available 10/11/2022 13:35:26 Reason for Referral None Reported. Problems No Known Problems Procedures Surgical History Date Name Laterality Status Provider Name and Address Organization Details Recorded Time 2 endoscopic myomectomy completed Ashanti Hensley [facility] 10/11/2022 13:12:27 Imaging Results None recorded. Procedure Notes None recorded. Medical Equipment None Reported. Allergies No known drug allergies Medications Name Sig Start Date Stop Date Status Note LastModified by Organization Details LastModified Time active Not Available Not Avai lable Not Available Vitals Date Recorded Body height Provider Name an d Address Organization Details Last Updated DateTime 10/11/2022 160.02 cm Ashanti HINOJOSA - [facility] 0 10/11/2022 13:11:14 Date Recorded Body mass index (BMI) Body weight Provider Name and Address Organization Details Last Updated DateTime 10/11/2022 28.3 kg/m2 40019.78 g Ashanti Flores PA - [facility] 10/11/2022 13:11:17 Date Recorded Oxygen saturation Oxygen saturation in Arterial blood by Pulse oximetry Provider Name and Address Organization Details Last Updated DateTime 10/11/2022 100 % 100 % Ashanti Flores PA - [facility] 10/11/2022 13:11:30 Date Recorded Pain severity - 0-10 verbal numeric rating [Score] - Reported Provider Name and Address Organization Details Last Updated DateTime 10/11/2022 3 Ashanti Flores PA - [facility] 0 10/11/2022 13:11:34 Date Recorded Heart rate Provider Name an d Address Organization Details Last Updated DateTime 10/11/2022 80 /min Ashanti Flores PA - [facility] 0 10/11/2022 13:11:37 Date Recorded Respiratory rate Provider Name a nd Address Organization Details Last Updated DateTime 10/11/2022 18 /min Ashanti Flores PA - [facility] 0 10/11/2022 13:11:39 Date Recorded Body temperature Provider Name a nd Address Organization Details Last Updated DateTime 10/11/2022 97.2 [degF] Ashanti Flores PA - [facility] 10/11/2022 13:11:43 Date Recorded Systolic blood pressure Diastolic blood pressure Provider Name and Address Organization Details Last Updated DateTime 10/11/2022 105 mm[Hg] 73 mm[Hg] Ashanti Flores PA - [facility] 10/11/2022 13:11:26 Social History Question Answer Notes LastModified by Organizat ion Details LastModified Time Tobacco Smoking Status Never Smoker Ashanti Flores tricia PA - [facility] 10/11/2022 13:12:03 What Is Your Level Of Alcohol Consumption? None [email or web address] Information not available 10/11/2022 Do You Use Any Illicit Or Recreational Drugs? No [email or web address] Information not available 10/11/2022 Do You Or Have You Ever Used Any Other Forms Of Tobacco Or Nicotine? No [email or web address] Information not available 10/11/2022 Sex: Unknown Functional Status None recorded. Mental Status None recorded. Family History Nothing Reported. Medical History No medical history recorded. Gynecological HistoryNo gynecological history recorded. Obstetrics History GPAL:G 0 P 0 0 0 0 Past Encounters Encounter ID Performer Location Encounter Start Date Encounter Closed Date Diagnosis/Indication Diagnosis SNOMED-CT Code Diagnosis ICD10 Code Diagnosis Note [id number] [facility] [address] [place] [address] 01/19/2019 15:34:35 01/19/2019 15:47:02 [id number] Kd [place]al [place] [address] [facility] [address] [place] [address] 10/11/2022 12:06:37 10/11/2022 13:37:09 Laceration of left little finger [id number] S61.217A Wound closure strips usedKeep covered and dry for 24 hours after which if gets wet then make sure to completely dry before covering.T he wound closure strips should fall off in 3-5 days Health Concerns Section Related Observation LastModified by Organization Detai ls LastModified Time None Recorded Concern Status LastModified by Organization Details LastModified Time None Recorded Advance Directives Directive None Recorded Payers Encounter Date Sequence Insurance Name Policy Number Policy Blanton Covered Member ID Blanton Member ID Guarantor Name 01/19/[address] [facility] [id number] 1 Giovana Wells [id number] Giovana Wells 10/11/[address] [place] [address] [id number] Giovana Wells [id number] Giovana Wells Notes Date Note Type Note Provider Name and Address Organization Details Recorded Time 3 text/html Wound / LacerationReported bypatient.Location:Woun d # 1 finger Quality:laceration; Wound 1 size in cm 1.5; not bleeding Severity:mild Duration:1 hours Kd Panchal MD [address] [place], [address], [place] - [facility] 10/11/2022 14:31:45 OBGyn Episode No OBEpisode recorded.
[2024-10-15 03:17] LABS: CT PCR NOT DETECTED (Not Detect.); NG PCR NOT DETECTED (Not Detect.)
[2024-10-15 13:45] LABS: Bacterial Vaginosis PCR NEGATIVE (Negative); Candida Group PCR NOT DETECTED (Not Detect); Candida glab krusei PCR NOT DETECTED (Not Detect); Trichomonas vaginalis PCR NOT DETECTED (Not Detect)
== END 2024-10-14 09:11 | disposition home or self-care (01) ==
LOC: HO.LAB 09:10
PROVIDERS: PCP Internal Medicine; Visit Provider Advanced Practice Midwife
DX: Z01.419 Encounter for gynecological examination (general) (routine) without abnormal findings (principal); R10.2 Pelvic and perineal pain; N92.1 Excessive and frequent menstruation with irregular cycle; D21.9 Benign neoplasm of connective and other soft tissue, unspecified; N85.2 Hypertrophy of uterus
CPT/HCPCS: 81515; 87491; 87591

== ENCOUNTER 2024-10-14 10:03 | Outpatient (REF) | payer OTHER, SELFPAY | END 2024-10-14 10:04 | disposition home or self-care (01) | LOC: HO.LNP 10:03 | PROVIDERS: Visit Provider Advanced Practice Midwife | DX: Z13.89 Encounter for screening for other disorder (principal) ==

== ENCOUNTER 2024-10-16 09:04 | Outpatient (REF) | payer OTHER, SELFPAY ==
[2024-10-16 10:13] LABS: MANUAL DIFF FLAG NO
[2024-10-16 10:22] LABS: Basophils Absolute Auto 0.1 X10*3/uL (0.0-0.2); Basophils Percent Auto 0.8 % (0-2); Eosinophils Absolute Auto 0.1 X10*3/uL (0.0-0.4); Eosinophils Percent Auto 1.6 % (0-4); Hematocrit 32.9 % (37.0-47.0); Hemoglobin 10.5 g/dl (12.0-16.0); Imm Gran Abs Auto 0.03 X10*3/uL (0.00-0.03); Imm Gran Pct Auto 0.4 % (0.0-0.4); Lymphocytes Absolute Auto 2.5 X10*3/uL (1.2-4.9); Lymphocytes Percent Auto 29.3 % (20-40); Mean Corpuscular HGB Conc 31.9 g/dl (31.0-35.0); Mean Corpuscular Hemoglobin 26.4 pg (27.0-33.0); Mean Corpuscular Volume 82.9 fL (80.0-98.0); Mean Platelet Volume 10.9 fL (9.4-12.3); Monocytes Absolute Auto 0.6 X10*3/uL (0.1-1.2); Monocytes Percent Auto 6.5 % (2-11); Neutrophils Absolute Auto 5.2 x10*3/uL (2.0-8.3); Neutrophils Percent Auto 61.4 % (45-73); Platelet Count 293 X10*3/uL (160-400); Red Blood Count 3.97 X10*6/uL (4.20-5.50); Red Cell Distribution Width 14.9 % (11.0-16.0); White Blood Count 8.5 X10*3/uL (4.8-10.8)
[2024-10-16 10:38] LABS: HCG Quantitative < 2 mIU/mL
[2024-10-16 10:51] LABS: Anion Gap 8 (12-20); Blood Urea Nitrogen 14 mg/dL (9-16); Calcium 9.7 mg/dL (8.4-10.2); Carbon Dioxide 24 mmol/L (22-29); Chloride 111 mmol/L (96-108); Cholesterol 122 mg/dL (<200); Estimated Glomerular Filt Rate > 60; Glucose Fasting 92 mg/dL (60-99); HDL Cholesterol 47 mg/dL (>40); Iron 73 mcg/dL (30-160); LDL Cholesterol Calculated 67 mg/dL (<100); Percent Iron Saturation 20 % (15-50); Potassium 4.2 mmol/L (3.3-5.1); Sodium 139 mmol/L (135-145); Total Iron Binding Capacity 359 mcg/dL (228-428); Triglycerides 40 mg/dL (<150); Unsaturated Iron Binding 286 ug/dL
[2024-10-16 11:13] LABS: Thyroid Stimulating Hormone 0.83 uIU/mL (0.32-4.0); Vitamin D 25-OH Total 24.7 ng/mL (>30)
== END 2024-10-16 09:05 | disposition home or self-care (01) ==
LOC: HO.HMGCLDS 09:04
PROVIDERS: PCP Internal Medicine; Referring Provider Advanced Practice Midwife; Visit Provider Internal Medicine
DX: Z00.01 Encounter for general adult medical examination with abnormal findings (principal); Z86.39 Personal history of other endocrine, nutritional and metabolic disease; Z86.2 Personal history of diseases of the blood and blood-forming organs and certain disorders involving the immune mechanism; E66.9 Obesity, unspecified; N92.1 Excessive and frequent menstruation with irregular cycle; N85.2 Hypertrophy of uterus
CPT/HCPCS: 36415; 80048; 80061; 82306; 83540; 84443; 84702; 85025

== ENCOUNTER 2024-11-05 10:49 | Outpatient (REF) | payer OTHER, SELFPAY ==
--- NOTE | ~2024-11-05 | US_ITS ---
EXAMINATION: US PELVIS TRANSABDOMINAL AND TRANSVAGINAL HISTORY: D21.9 - Benign neoplasm of connective and other soft tissue, unspecified COMPARISON: Comparison is made with the prior examination dated 10/30/2022. TECHNIQUE: Transabdominal and endovaginal real-time 2D low-scale ultrasound was performed. Color Doppler was also performed. FINDINGS: Uterus: The uterus is normal in size, measuring 8.6 x 4.4 x 4.8 cm. Myometrium has a normal echotexture. No fibroids are identified. Endometrium: The endometrial stripe measures 1 mm in thickness. Right ovary: The right ovary measures 4.4 x 2.0 x 2.4 cm. The right ovary is normal in size and echotexture. Left ovary: The left ovary measures 7.1 x 5.8 x 6.2 cm. The left ovary contains a 6.3 x 4.8 x 5.4 cm mass with low-level internal echoes which likely represents a hemorrhagic cyst or endometrioma. Color Doppler analysis of the bilateral ovarian arteries and veins are normal. Pelvic fluid: none. US/US pelvic and transvaginal IMPRESSION: 6.3 x 4.8 x 5.4 cm left ovarian probable hemorrhagic cyst versus endometrioma. A follow-up examination is recommended in 6 weeks, at a different time in the patient's menstrual cycle, to document resolution. Electronically signed by: Ravindra Kaur MD 11/05/2024 12:19 PM [facility]
--- OUTSIDE RECORDS SUMMARY | 2024-11-05 12:36 | XMS_ITS | Data Portability ---
Author Organization [facility] [address] [address] [place] [id number] Assessment No assessment recorded. Plan of Treatment [...] By Organization Details Last Modified Time 10/11/2022 [id number] cuts closed with adhesives: care instructions Not [...] Not Available Vitals Date Recorded Body height Body mass index (BMI) Body weight Oxygen saturation Oxygen saturation in Arterial blood by Pulse oximetry Pain severity - 0-10 verbal numeric rating [Score] - Reported Heart rate Respiratory rate Body temperature Systolic blood pressure Diastolic blood pressure Provider Name and Address Organization Details Last Updated DateTime 3 160.02 cm 28.3 kg/m2 27727.7 8 g 100 % 100 % 3 80 /min 18 /min 97.2 [degF] 105 mm[Hg] 73 mm[Hg] Ashantiedmar Flores ASHISH - [facility] 13:11:26 Social History Question Answer Notes LastModified by Organizat ion Details LastModified Time Tobacco Smoking Status Never Smoker Ashanti Hindsclyde clarke PA - [facility] 10/11/2022 13:12:03 What Is Your Level Of Alcohol Consumption? None [email or web address] Information not available 10/11/2022 Do You Use Any Illicit Or Recreational Drugs? No [email or web address] Information not available 10/11/2022 Do You Or Have You Ever Used Any Other Forms Of Tobacco Or Nicotine? No [email or web address] Information not available 10/11/2022 Sex: Unknown Functional Status None recorded. Mental Status None recorded. Family History Nothing Reported. Medical History No medical history recorded. Gynecological HistoryNo gynecological history recorded. Obstetrics History GPAL:G 0 P 0 0 0 0 Past Encounters Encounter ID Performer Location Encounter Start Date Encounter Closed Date Diagnosis/Indication Diagnosis SNOMED-CT Code Diagnosis ICD10 Code Diagnosis Note [id number] [address] [facility] [address] [place] [address] 01/19/2019 15:34:35 01/19/2019 15:47:02 [id number] Kd Panchal MD [address] [facility] [address] [place] [address] 10/11/2022 12:06:37 10/11/2022 13:37:09 Laceration of left little finger [id number] 1242006 S61.217A Wound closure strips usedKeep covered and dry for 24 hours after which if gets wet then make sure to completely dry before covering.T he wound closure strips should fall off in 3-5 days Health Concerns Section Related Observation LastModified by Organization Tomasa [email or web address] LastModified Time None Recorded Concern Status LastModified by Organization Details LastModified Time None Recorded Advance Directives Directive None Recorded Payers Encounter Date Sequence Insurance Name Policy Number Policy Blanton Covered Member ID Blanton Member ID Guarantor Name 01/19/2019 1 [facility] [id number] 1 Giovana Wells [id number] Giovana Wells 10/11/2022 1 [facility] [id number] 1 Giovana Wells [id number] Giovana Wells Notes Date Note Type Note Provider Name and Address Organization Details Recorded Time 3 text/html Wound / LacerationReported bypatient.Location:Woun d # 1 finger Quality:laceration; Wound 1 size in cm 1.5; not bleeding Severity:mild Duration:1 hours Kd Panchal MD [facility] [place], [address], [place] - [facility] 10/11/2022 14:31:45 OBGyn Episode No OBEpisode recorded.
== END 2024-11-05 10:50 | disposition home or self-care (01) ==
LOC: HO.US 10:49
PROVIDERS: PCP Internal Medicine; Visit Provider Advanced Practice Midwife
DX: D21.9 Benign neoplasm of connective and other soft tissue, unspecified (principal)
CPT/HCPCS: 76830; 76856

== ENCOUNTER → 2024-11-05 10:50 | Outpatient (BNV) | payer OTHER, SELFPAY | PROVIDERS: PCP Internal Medicine; Visit Provider Radiology Diagnostic Radiology | DX: N83.292 Other ovarian cyst, left side (principal) | CPT/HCPCS: 76830; 76856 ==

== ENCOUNTER 2024-11-06 09:52 | Outpatient (AMB) | payer OTHER, SELFPAY ==
--- NOTE | 2024-11-06 09:52 | MHC.OFFVIS ---
Intake Visit Reasons: Ultra sound follow up Allergies No Known Allergies Allergy (Verified 10/14/24 09:21) HPI Comments Details: Tele Health Visit Total time I personally spent on visit and management today: 24 minutes. Time spent included review of pertinent office notes in the electronic health record; review of laboratory and imaging results; review of personal family medical history; discussing diagnosis and plan of care with the patient; documenting the encounter in the EMR. Patient presents to discuss: Patient is on the video call for ultrasound results, history of pelvic fullness with her recent exam. She denies any current left-sided pelvic pain. [facility] Medical History Ovarian mass Obesity (BMI 30.0-34.9) History of vitamin D deficiency Annual visit for general adult medical examination with abnormal findings History of anemia Dysfunctional uterine bleeding Surgical History H/O myomectomy Family History Mother Asthma Maternal Grandmother Diabetes mellitus HIV (human immunodeficiency virus infection) Social History Household Members: Significant Other Household Members Other:: nephew Housing: House Alcohol intake: current Alcohol intake frequency: holidays/special occasions only Patient Tobacco Use Status: Never used Tobacco e-Cigarette/Vaping Use: Never Used service: No Current occupational status: employed Current occupation: [employer] Sexual orientation: Straight/Heterosexual Gender identity: Female Cognitive needs: No Hearing needs: No Vision needs: Yes Female Reproductive History Menstrual Age of Menarche: 14 Telehealth Telehealth Telehealth Platform: iCrederity Location of provider rendering services: practice address Location of patient: address on file Patient Identification confirmed using: Name, : Yes Telehealth method: video Patient verbally consented to treatment: Yes Patient verbally consented to billing insurance company: Yes Patient informed of any privacy concerns related to visit: Yes Results Reviewed Results Reviewed: [address] [address] Ultrasound Report Signed Patient: Giovana Wells MR#: [id number] : 1990 Acct:[id number] Age/Sex: 34 / F ADM Date: 11/05/24 Loc: HO.US Attending Dr: Aleksandra Vasques CNM Ordering Physician: Aleksandra Vasques CNM Date of Service: 11/05/24 Procedure(s): US pelvic and transvaginal Accession Number(s): [id number] cc: Karli Dale MD; Aleksandra Vasques CNM~ EXAMINATION: US PELVIS TRANSABDOMINAL AND TRANSVAGINAL HISTORY: D21.9 - Benign neoplasm of connective and other soft tissue, unspecified COMPARISON: Comparison is made with the prior examination dated 10/30/2022. TECHNIQUE: Transabdominal and endovaginal real-time 2D low-scale ultrasound was performed. Color Doppler was also performed. FINDINGS: Uterus: The uterus is normal in size, measuring 8.6 x 4.4 x 4.8 cm. Myometrium has a normal echotexture. No fibroids are identified. Endometrium: The endometrial stripe measures 1 mm in thickness. Right ovary: The right ovary measures 4.4 x 2.0 x 2.4 cm. The right ovary is normal in size and echotexture. Left ovary: The left ovary measures 7.1 x 5.8 x 6.2 cm. The left ovary contains a 6.3 x 4.8 x 5.4 cm mass with low-level internal echoes which likely represents a hemorrhagic cyst or endometrioma. Color Doppler analysis of the bilateral ovarian arteries and veins are normal. Pelvic fluid: none. US/US pelvic and transvaginal IMPRESSION: 6.3 x 4.8 x 5.4 cm left ovarian probable hemorrhagic cyst versus endometrioma. A follow-up examination is recommended in 6 weeks, at a different time in the patient's menstrual cycle, to document resolution. Electronically signed by: Ravindra Kaur MD 11/05/2024 12:19 PM [facility] Dictated By: Ravindra Kaur MD Signed By: <Electronically signed by Ravindra Kaur MD in OV> 11/05/24 1219 DD/ 1130 TD/TT: 11/05/24 1200 Front Counter Attendant: Assessment & Plan Assessment & Plan (1) Ovarian mass: Comment: left ovary Code(s): N83.8 - Other noninflammatory disorders of ovary, fallopian tube and broad ligament Category: Medical Plan Discussed: Left ovary: The left ovary measures 7.1 x 5.8 x 6.2 cm. The left ovary contains a 6.3 x 4.8 x 5.4 cm mass with low-level internal echoes which likely represents a hemorrhagic cyst or endometrioma. Reviewed recommendations, US reports with Dr. Garber plan to obtain an MRI at this timeframe for further evaluation at this time. Counseled regarding findings of: 6.3 cm left ovarian mass-Hemorrhagic cyst versus endometrioma. Complex ovarian cyst, which is often benign, and most resolve on their own overtime. Some develop into premalignant or malignant tumors. Limitations of testing for diagnostic purposes. Further monitoring and evaluation is recommended with US, possible CT, or MRI study. If persists, or is indicated (Ca-125, Carbohydrate Antigen 19-9, & Carcinoembryonic Antigen) labs will be ordered and referral to [facility] or general gynecology for MD care if indicated for possible surgical consult. Advised to call if she is experiencing any pain on the left side to report to the office immediately. Follow up in person for test results. She denies any contraindications for MRI study. All of her questions and concerns were addressed to the best of my ability and shared decision making. She is agreeable to the plan of care. This note is constructed using voice recognition software. While every effort has been made to ensure accuracy, sales and merchandising representative errors may have been included. Orders: Orders MR pelvis wo/w con Today N83.8 - Other noninflammatory disorders of ovary, fallopian tube and broad ligament Coding Level of Care Code Tele Est Pt Level 3 (22492) Diagnoses Ovarian mass N83.8
== END 2024-11-06 13:46 | disposition home or self-care (01) ==
LOC: HO.HWS 09:52
PROVIDERS: PCP Internal Medicine; Visit Provider Advanced Practice Midwife
DX: N83.8 Other noninflammatory disorders of ovary, fallopian tube and broad ligament (principal)
CPT/HCPCS: 99213

== ENCOUNTER → 2024-11-15 13:26 | Outpatient (BNV) | payer OTHER, SELFPAY | PROVIDERS: PCP Internal Medicine; Visit Provider Radiology Diagnostic Radiology | DX: N83.202 Unspecified ovarian cyst, left side (principal); D25.9 Leiomyoma of uterus, unspecified | CPT/HCPCS: 72197 ==

== ENCOUNTER 2024-11-15 13:28 | Outpatient (REF) | payer OTHER, SELFPAY ==
--- NOTE | ~2024-11-15 | MR_ITS ---
CLINICAL HISTORY: N83.8 - Other noninflammatory disorders of ovary, fallopian tube and bro... MR of the pelvis with and without gadolinium Comparison: US/NH/SR - US PELVIC AND TRANSVAGINAL - 11/05/24 11:30 EST US/NH/SR - US PELVIC AND TRANSVAGINAL - 10/30/22 11:21 EST Findings: There is a partially exophytic subserosal left uterine fundal low T2 intensity mass measuring 10 mm diameter, which demonstrates postcontrast enhancement. Uterus otherwise is within normal limits. Junctional zone is normal in appearance. There is a cystic left adnexal mass measuring 64 mm anteroposterior by 71 mm transverse by 75 mm craniocaudal which demonstrates high precontrast T1 and high precontrast T2 signal intensity, without significant enhancement following intravenous contrast administration. Right ovary is within normal limits. Small amount of free fluid in the pelvis is present, within physiologic limits in a menstruating female. Visualized bowel loops and vasculature are normal in caliber. No adenopathy. Visualized osseous structures are normal in appearance. IMPRESSION: 1. Findings most suggestive of a hemorrhagic left ovarian cyst. As recommended by ultrasound, follow-up ultrasound examination in 6 weeks is recommended to ensure resolution, and to exclude underlying malignancy. 2. Uterine fibroid. This document has been electronically signed by: Lorie Harrington MD on 11/15/2024 14:33:30
--- OUTSIDE RECORDS SUMMARY | 2024-11-15 13:35 | XMS_ITS | Data Portability ---
Author Organization [facility] [address] Address [address] [place] [phone] Assessment No assessment recorded. Plan of Treatment [...] By Organization Details Last Modified Time 10/11/2022 [id number] cuts closed with adhesives: care instructions Not [...] Updated DateTime 3 160.02 cm 28.3 kg/m2 90796.7 8 g 100 % 100 % 3 80 /min 18 /min 97.2 [degF] 105 mm[Hg] 73 mm[Hg] Ashantiedmar Flores ASHISH - [facility] 13:11:26 Social History Question Answer Notes LastModified by Organizat ion Details LastModified Time Tobacco Smoking Status Never Smoker Ashanti Hindsclyde clarke PA - [facility] 10/11/2022 13:12:03 What Is Your Level Of Alcohol Consumption? None [email or web address] Information not available 10/11/2022 Do You Use Any Illicit Or Recreational Drugs? No [email or web address] Information not available 10/11/2022 Do You Or Have You Ever Used Any Other Forms Of Tobacco Or Nicotine? No [email or web address] Information not available 10/11/2022 Sex: Unknown Functional Status None recorded. Mental Status None recorded. Family History Nothing Reported. Medical History No medical history recorded. Gynecological HistoryNo gynecological history recorded. Obstetrics History GPAL:G 0 P 0 0 0 0 Past Encounters Encounter ID Performer Location Encounter Start Date Encounter Closed Date Diagnosis/Indication Diagnosis SNOMED-CT Code Diagnosis ICD10 Code Diagnosis Note [id number] [address] [facility] [address] [place] [address] 01/19/2019 15:34:35 01/19/2019 15:47:02 [id number] Kd Panchal MD [address] [facility] [address] [place] [address] 10/11/2022 12:06:37 10/11/2022 13:37:09 Laceration of left little finger [id number] S61.217A Wound closure strips usedKeep covered and [...] Blanton Member ID Guarantor Name 01/19/2019 1 [facility] [id number] 1 Giovana Wells [id number] Giovana Wells 10/11/2022 1 [facility] [id number] 1 Giovana Wells [id number] Giovana Wells Notes Date Note Type Note Provider Name and Address Organization Details Recorded Time 3 text/html Wound / LacerationReported bypatient.Location:Woun d # 1 finger Quality:laceration; Wound 1 size in cm 1.5; not bleeding Severity:mild Duration:1 hours Kd Panchal MD [facility] [place], [address], [place] - [facility] 10/11/2022 14:31:45 OBGyn Episode No OBEpisode recorded.
[2024-11-15] MEDS: gadobutroL 7.5 ML VIAL IVPUSH (14:07)
== END 2024-11-15 13:29 | disposition home or self-care (01) ==
LOC: HO.MRI 13:28
PROVIDERS: PCP Internal Medicine; Visit Provider Advanced Practice Midwife
DX: N83.8 Other noninflammatory disorders of ovary, fallopian tube and broad ligament (principal)
CPT/HCPCS: 72197; A9585

== ENCOUNTER 2024-12-08 09:29 | Outpatient (AMB) | payer OTHER, SELFPAY ==
[2024-12-08 09:36] VITALS: BP 116/70; PULSE 70; TEMP 36.6; O2SAT 97; BMI 28.5
--- NOTE | 2024-12-08 09:36 | AM.OFFWIN_ITS ---
Intake Vital Signs 12/08/24 09:36 Height 5 ft 3 in Weight 161 lb BMI 28.5 BP 116/70 Blood Pressure Location Lt brachial Position Sitting Pulse 70 Pulse Source Pulse Oximeter Temp 97.8 F Temp Source Oral Pulse Oximetry (%) 97 Oxygen Delivery Method Room Air Intake Visit Reasons: EP-rash in rt side neck & chick Intake Note: pt is here for rash in right side, neck Patient Tobacco Use Status: Never used Tobacco Allergies No Known Allergies Allergy (Verified 12/08/24 09:37) Do you need a note to return to daycare/school/sports/work: Yes HPI HPI Comments History of Present Illness Details History of Present Illness - The patient is a 34-year-old female pr esenting with an itchy rash on the neck, previously on her right arm - She reports the rash started approxima tely one week prior to the visit. - Initial management included the use of a steroid cream prescribed at an urgent care visit which provided relief to the right arm. - The patient describes the rash as itch y and worsened by heat, such as during showers. - Possible triggers discussed include re cent use of new sunscreen and hair products; however, the patient did not identify a specific cause. - Problem management has been ongoing, a lthough the complaint persists, necessitating further evaluation and treatment. Physical Exam General: Cooperative, healthy appearing, comfortable, no acute distress and well developed Orientation: Patient oriented x3 Limitations: No limitations Head: Normal to inspection Ears: Hearing grossly normal bilaterally Nose: Normal external nose present Face and sinus: Normal facial exam Eyes: Appearance normal, both eyes and all related structures Neck: Normal visual inspection and Yes full ROM Respiratory: Normal respiratory effort and able to speak in complete sentences. Skin: raised erythematous lesions 1cm area on right side neck and few pinpoint spots on right cheek Neuro: Patient oriented x3 Extremities: Normal to inspection [facility] Medical History Ovarian mass Obesity (BMI 30.0-34.9) History of vitamin D deficiency Annual visit for general adult medical examination with abnormal findings History of anemia Dysfunctional uterine bleeding Surgical History H/O myomectomy Family History Mother Asthma Maternal Grandmother Diabetes mellitus HIV (human immunodeficiency virus infection) Social History Household Members: Significant Other Household Members Other:: nephew Housing: House Alcohol intake: current Alcohol intake frequency: holidays/special occasions only Patient Tobacco Use Status: Never used Tobacco e-Cigarette/Vaping Use: Never Used service: No Current occupational status: employed Current occupation: [employer] Sexual orientation: Straight/Heterosexual Gender identity: Female Cognitive needs: No Hearing needs: No Vision needs: Yes Female Reproductive History Menstrual Age of Menarche: 14 Review of Systems Const All systems reviewed & are unremarkable except as noted in HPI and below Physical Exam Vital Signs: Last Vital Signs Temp 97.8 F 12/08/24 09:36 Pulse 70 12/08/24 09:36 BP 116/70 12/08/24 09:36 Pulse Ox 97 12/08/24 09:36 Oxygen Delivery Method Room Air 12/08/24 09:36 BMI result Body Mass Index 28.5 Assessment & Plan Assessment & Plan (1) Contact dermatitis: Code(s): L25.9 - Unspecified contact dermatitis, unspecified cause Qualifiers: Contact dermatitis trigger: other chemical product Contact dermatitis type: allergic Qualified Code(s): L23.5 - Allergic contact dermatitis due to other chemical products Plan: To address contact dermatitis, I have instructed the patient to avoid potential irritants and to use Triamcinolone, a medium-potency corticosteroid cream, twice daily while ensuring avoidance of the periocular region. Emphasis was made on the importance of handwashing after application. An oral antihistamine, such as Diphenhydramine, may be taken before bedtime to alleviate nighttime itching. I assured the patient that the condition is generally not contagious, addressing any concerns about transmission to family members or pets. I instructed the patient to continue using the cream from the previous prescription, with the option to provide a refill if needed. Patient was informed and verbally consented to the use of an ambient scribe for clinic note documentation during this visit. Medications: New triamcinolone acetonide 0.1% 1 appl topical BID 30 grams 0RF Coding Level of Care Code Est Pt Level 3 (99927) Diagnoses Allergic dermatitis due to other chemical product L23.5 Contact dermatitis trigger: other chemical product Contact dermatitis type: allergic
--- OUTSIDE RECORDS SUMMARY | 2024-12-08 10:16 | XMS_ITS | Data Portability ---
Author Organization [facility] [address] Address [address] [place] [phone] Assessment No assessment recorded. Plan of Treatment [...] By Organization Details Last Modified Time 10/11/2022 [id number] cuts closed with adhesives: care instructions Not [...] Updated DateTime 3 160.02 cm 28.3 kg/m2 93340.7 8 g 100 % 100 % 3 80 /min 18 /min 97.2 [degF] 105 mm[Hg] 73 mm[Hg] Ashantiedmar Flores ASHISH - [facility] 13:11:26 Social History Question Answer Notes LastModified by Organizat ion Details LastModified Time Tobacco Smoking Status Never Smoker Ashanti Hindsclyde clarke PA - [facility] 10/11/2022 13:12:03 What Is Your Level Of Alcohol Consumption? None [email or web address] Information not available 10/11/2022 Do You Use Any Illicit Or Recreational Drugs? No [email or web address] Information not available 10/11/2022 Do You Or Have You Ever Used Any Other Forms Of Tobacco Or Nicotine? No [email or web address] Information not available 10/11/2022 Sex: Unknown Functional Status None recorded. Mental Status None recorded. Family History Nothing Reported. Medical History No medical history recorded. Gynecological HistoryNo gynecological history recorded. Obstetrics History GPAL:G 0 P 0 0 0 0 Past Encounters Encounter ID Performer Location Encounter Start Date Encounter Closed Date Diagnosis/Indication Diagnosis SNOMED-CT Code Diagnosis ICD10 Code Diagnosis Note [id number] [address] [facility] [address] [place] [address] 01/19/2019 15:34:35 01/19/2019 15:47:02 [id number] Kd Panchal MD [address] [facility] [address] [place] [address] 10/11/2022 12:06:37 10/11/2022 13:37:09 Laceration of left little finger [id number] S61.217A Wound closure strips usedKeep covered and [...] Blanton Member ID Guarantor Name 01/19/2019 1 [facility] [id number] 1 Giovana Wells [id number] Giovana Wells 10/11/2022 1 [facility] [id number] 1 Giovana Wells [id number] Giovana Wells Notes Date Note Type Note Provider Name and Address Organization Details Recorded Time 3 text/html Wound / LacerationReported bypatient.Location:Woun d # 1 finger Quality:laceration; Wound 1 size in cm 1.5; not bleeding Severity:mild Duration:1 hours Kd Panchal MD [facility] [place], [address], [place] - [facility] 10/11/2022 14:31:45 OBGyn Episode No OBEpisode recorded.
== END 2024-12-08 09:52 | disposition home or self-care (01) ==
PROVIDERS: PCP Internal Medicine; Visit Provider Physician Assistant
DX: L23.5 Allergic contact dermatitis due to other chemical products (principal)

== ENCOUNTER → 2024-12-08 09:29 | Outpatient (BNVA) | payer OTHER, SELFPAY | PROVIDERS: PCP Internal Medicine; Visit Provider Physician Assistant ==

== ENCOUNTER 2024-12-16 08:38 | Outpatient (AMB) | payer OTHER, SELFPAY ==
--- NOTE | 2024-12-16 08:39 | MHC.OFFVIS ---
Intake Visit Reasons: TV MRI results Intake Note: cell #[phone] Automobile Mechanic Motor: Automobile Mechanic Motor Present Allergies No Known Allergies Allergy (Verified 12/16/24 08:39) Is last menstrual period known: Yes Last menstrual period: 12/15/24 HPI Comments Details: Tele Health Visit Total time I personally spent on visit and management today: 22 minutes. Time spent included review of pertinent office notes in the electronic health record; review of laboratory and imaging results; review of personal family medical history; discussing diagnosis and plan of care with the patient; documenting the encounter in the EMR. Patient presents to discuss: History of complex ovarian cyst. She denies any pelvic pain. [facility] Medical History (Updated 12/16/24 @ 09:02 by Aleksandra Vasques CNM) Complex ovarian cyst Ovarian mass Obesity (BMI 30.0-34.9) History of vitamin D deficiency Annual visit for general adult medical examination with abnormal findings History of anemia Dysfunctional uterine bleeding Surgical History H/O myomectomy Family History Mother Asthma Maternal Grandmother Diabetes mellitus HIV (human immunodeficiency virus infection) Social History Household Members: Significant Other Household Members Other:: nephew Housing: House Alcohol intake: current Alcohol intake frequency: holidays/special occasions only Patient Tobacco Use Status: Never used Tobacco e-Cigarette/Vaping Use: Never Used service: No Current occupational status: employed Current occupation: [employer] Sexual orientation: Straight/Heterosexual Gender identity: Female Cognitive needs: No Hearing needs: No Vision needs: Yes Female Reproductive History Menstrual Age of Menarche: 14 Date of last menstrual period: 12/15/24 Review of Systems Const All systems reviewed & are unremarkable except as noted in HPI and below Endo Reports no additional complaints Physical Exam Const General: cooperative, healthy appearing and no acute distress Psych Appearance: well kempt Attitude: cooperative Thought process: Normal thought process present Telehealth Telehealth Telehealth Platform: [employer] (Astil[employer]) Location of provider rendering services: practice address Location of patient: address on file Patient Identification confirmed using: Name, : Yes Telehealth method: video Patient verbally consented to treatment: Yes Patient verbally consented to billing insurance company: Yes Patient informed of any privacy concerns related to visit: Yes Results Reviewed Results Reviewed: [address] [address] Magnetic Resonance Report Signed Patient: Giovana Wells MR#: [id number] : 1990 Acct:[id number] Age/Sex: 34 / F ADM Date: 11/15/24 Loc: HO.MRI Attending Dr: Aleksandra Vasques CNM Ordering Physician: Aleksandra Vasques CNM Date of Service: 11/15/24 Procedure(s): MR pelvis wo/w con Accession Number(s): [id number] cc: Karli Dale MD; Aleksandra Vasques CNM~ CLINICAL HISTORY: N83.8 - Other noninflammatory disorders of ovary, fallopian tube and bro... MR of the pelvis with and without gadolinium Comparison: US/NM/SR - US PELVIC AND TRANSVAGINAL - 11/05/24 11:30 EST US/NM/SR - US PELVIC AND TRANSVAGINAL - 10/30/22 11:21 EST Findings: There is a partially exophytic subserosal left uterine fundal low T2 intensity mass measuring 10 mm diameter, which demonstrates postcontrast enhancement. Uterus otherwise is within normal limits. Junctional zone is normal in appearance. There is a cystic left adnexal mass measuring 64 mm anteroposterior by 71 mm transverse by 75 mm craniocaudal which demonstrates high precontrast T1 and high precontrast T2 signal intensity, without significant enhancement following intravenous contrast administration. Right ovary is within normal limits. Small amount of free fluid in the pelvis is present, within physiologic limits in a menstruating female. Visualized bowel loops and vasculature are normal in caliber. No adenopathy. Visualized osseous structures are normal in appearance. IMPRESSION: 1. Findings most suggestive of a hemorrhagic left ovarian cyst. As recommended by ultrasound, follow-up ultrasound examination in 6 weeks is recommended to ensure resolution, and to exclude underlying malignancy. 2. Uterine fibroid. This document has been electronically signed by: Lorie Harrington MD on 11/15/2024 14:33:30 Dictated By: Lorie Harrington MD Signed By: <Electronically signed by Lorie Harrington MD in OV> 11/15/24 1434 DD/ 1433 TD/TT: 11/15/24 1433 Business Development Professional: Assessment & Plan Assessment & Plan (1) Complex ovarian cyst: Code(s): N83.299 - Other ovarian cyst, unspecified side Category: Medical Plan Counseled regarding findings of: Complex ovarian cyst, which is often benign, and most resolve on their own overtime. Some develop into premalignant or malignant tumors. Limitations of testing for diagnostic purposes. Further monitoring and evaluation is recommended with US, possible CT, or MRI study. If indicated, (Ca-125, Carbohydrate Antigen 19-9, & Carcinoembryonic Antigen) labs will be ordered and referral to [facility] or general gynecology for MD care if indicated for possible surgical consult. All of her questions and concerns were addressed to the best of my ability and shared decision making. She is agreeable to the plan of care. This note is constructed using voice recognition software. While every effort has been made to ensure accuracy, heatset winder operator errors may have been included. Orders: Orders CA-125 12/16/24 N83.299 - Other ovarian cyst, unspecified side US pelvic and transvaginal 12/16/24 N83.299 - Other ovarian cyst, unspecified side Carbohydrate Antigen 19-9 12/16/24 N83.299 - Other ovarian cyst, unspecified side Carcinoembryonic Antigen 12/16/24 N83.299 - Other ovarian cyst, unspecified side Referrals Gynecologic Oncology Referral N83.299 - Other ovarian cyst, unspecified side Coding Level of Care Code Tele Est Pt Level 3 (78452) Diagnoses Complex ovarian cyst N83.299
--- OUTSIDE RECORDS SUMMARY | 2024-12-16 09:10 | XMS_ITS | Data Portability ---
Author Organization [facility] [address] Address [address] [place] [phone] Assessment No assessment recorded. Plan of Treatment [...] By Organization Details Last Modified Time 10/11/2022 [id number] cuts closed with adhesives: care instructions Not [...] Updated DateTime 3 160.02 cm 28.3 kg/m2 63521.7 8 g 100 % 100 % 3 80 /min 18 /min 97.2 [degF] 105 mm[Hg] 73 mm[Hg] Ashantiedmar Flores ASHISH - [facility] 13:11:26 Social History Question Answer Notes LastModified by Organizat ion Details LastModified Time Tobacco Smoking Status Never Smoker Ashanti Hindsclyde clarke PA - [facility] 10/11/2022 13:12:03 What Is Your Level Of Alcohol Consumption? None [email or web address] Information not available 10/11/2022 Do You Use Any Illicit Or Recreational Drugs? No [email or web address] Information not available 10/11/2022 Do You Or Have You Ever Used Any Other Forms Of Tobacco Or Nicotine? No [email or web address] Information not available 10/11/2022 Sex: Unknown Functional Status None recorded. Mental Status None recorded. Family History Nothing Reported. Medical History No medical history recorded. Gynecological HistoryNo gynecological history recorded. Obstetrics History GPAL:G 0 P 0 0 0 0 Past Encounters Encounter ID Performer Location Encounter Start Date Encounter Closed Date Diagnosis/Indication Diagnosis SNOMED-CT Code Diagnosis ICD10 Code Diagnosis Note [id number] [address] [facility] [address] [place] [address] 01/19/2019 15:34:35 01/19/2019 15:47:02 [id number] Kd Panchal MD [address] [facility] [address] [place] [address] 10/11/2022 12:06:37 10/11/2022 13:37:09 Laceration of left little finger [id number] S61.217A Wound closure strips usedKeep covered and [...] ID Guarantor Name 01/19/2019 1 [facility] [id number] 1 Giovana Wells [id number] Giovana Wells 10/11/2022 1 [facility] [id number] 1 Giovana Wells [id number] Giovana Wells Notes Date Note Type Note Provider Name and Address Organization Details Recorded Time 3 text/html Wound / LacerationReported bypatient.Location:Woun d # 1 finger Quality:laceration; Wound 1 size in cm 1.5; not bleeding Severity:mild Duration:1 hours Kd Panchal MD [facility], [address], [place] - [facility] 10/11/2022 14:31:45 OBGyn Episode No OBEpisode recorded.
== END 2024-12-16 14:57 | disposition home or self-care (01) ==
LOC: HO.HWS 08:38
PROVIDERS: PCP Internal Medicine; Visit Provider Advanced Practice Midwife
DX: N83.299 Other ovarian cyst, unspecified side (principal)
CPT/HCPCS: 99213

== ENCOUNTER 2025-01-09 14:00 | Outpatient (REF) | payer OTHER, SELFPAY ==
--- NOTE | ~2025-01-09 | US_ITS ---
EXAMINATION: US PELVIS TRANSABDOMINAL AND TRANSVAGINAL HISTORY: N83.299 - Other ovarian cyst, unspecified side COMPARISON: Comparison is made with the prior examination dated 11/05/2024. TECHNIQUE: Transabdominal and endovaginal real-time 2D lwo-scale ultrasound was performed. FINDINGS: Uterus: The uterus is normal in size, measuring 7.6 x 3.8 x 4.5 cm. Myometrium has a normal echotexture. There is a left posterior uterine fibroid measuring 9 x 10 x 9 mm without change. Endometrium: The endometrial stripe measures 11 mm in thickness. Right ovary: The right ovary measures 3.2 x 1.3 x 1.6 cm. The right ovary is normal in size and echotexture. Left ovary: The left ovary measures 7.8 x 5.5 x 6.2 cm. Again seen is a cystic lesion with low-level internal echoes and slight wall nodularity. This measures 7.1 x 5.1 x 5.8 cm (previously 6.3 x 4.8 x 5.4 cm). Pelvic fluid: none. US/US pelvic and transvaginal IMPRESSION: Interval enlargement of the previously cystic lesion of the left ovary, which could represent a hemorrhagic cyst, endometrioma, or neoplasm. Given interval growth over 8 weeks, laparoscopy should be considered. Electronically signed by: Ravindra Kaur MD 01/09/2025 03:46 PM EDT
--- OUTSIDE RECORDS SUMMARY | 2025-01-09 14:23 | XMS_ITS | Data Portability ---
Author Organization [facility] [address] Address [address] [place] [phone] Assessment No assessment recorded. Plan of Treatment [...] By Organization Details Last Modified Time 10/11/2022 [id number] cuts closed with adhesives: care instructions Not [...] Updated DateTime 3 160.02 cm 28.3 kg/m2 75295.7 8 g 100 % 100 % 3 80 /min 18 /min 97.2 [degF] 105 mm[Hg] 73 mm[Hg] Ashantiedmar Flores ASHISH - [facility] 13:11:26 Social History Question Answer Notes LastModified by Organizat ion Details LastModified Time Tobacco Smoking Status Never Smoker Ashanti Hindsclyde clarke PA - [facility] 10/11/2022 13:12:03 What Is Your Level Of Alcohol Consumption? None [email or web address] Information not available 10/11/2022 Do You Use Any Illicit Or Recreational Drugs? No [email or web address] Information not available 10/11/2022 Do You Or Have You Ever Used Any Other Forms Of Tobacco Or Nicotine? No Information not available 10/11/2022 Sex: Unknown Functional Status None recorded. Mental Status None recorded. Family History Nothing Reported. Medical History No medical history recorded. Gynecological HistoryNo gynecological history recorded. Obstetrics History GPAL:G 0 P 0 0 0 0 Past Encounters Encounter ID Performer Location Encounter Start Date Encounter Closed Date Diagnosis/Indication Diagnosis SNOMED-CT Code Diagnosis ICD10 Code Diagnosis Note [id number] [address] [facility] [address] [place] [address] 01/19/2019 15:34:35 01/19/2019 15:47:02 [id number] Kd Panchal MD [address] [facility] [address] [place] [address] 10/11/2022 12:06:37 10/11/2022 13:37:09 Laceration of left little finger [id number] S61.217A Wound closure strips usedKeep covered and [...] ID Guarantor Name 01/19/2019 1 [facility] [id number] 1 Giovana Wells [id number] Giovana Wells 10/11/2022 1 [facility] [id number] 1 Giovana Wells [id number] Giovana Wells Notes Date Note Type Note Provider Name and Address Organization Details Recorded Time 3 text/html Wound / LacerationReported bypatient.Location:Woun d # 1 finger Quality:laceration; Wound 1 size in cm 1.5; not bleeding Severity:mild Duration:1 hours Kd Panchal MD [facility] [place], [address], [place] - [facility] 10/11/2022 14:31:45 OBGyn Episode No OBEpisode recorded.
== END 2025-01-09 14:01 | disposition home or self-care (01) ==
LOC: HO.US 14:00
PROVIDERS: PCP Internal Medicine; Visit Provider Advanced Practice Midwife
DX: N83.299 Other ovarian cyst, unspecified side (principal)
CPT/HCPCS: 76830; 76856

== ENCOUNTER → 2025-01-09 14:02 | Outpatient (BNV) | payer OTHER, SELFPAY | PROVIDERS: PCP Internal Medicine; Visit Provider Radiology Diagnostic Radiology | DX: N83.202 Unspecified ovarian cyst, left side (principal) | CPT/HCPCS: 76830; 76856 ==

== ENCOUNTER 2025-01-13 14:57 | Outpatient (AMB) | payer OTHER, SELFPAY ==
--- NOTE | 2025-01-13 14:57 | MHC.OFFVIS ---
Intake Visit Reasons: TV us results Allergies No Known Allergies Allergy (Verified 12/16/24 08:39) HPI Comments Details: Tele Health Visit Total time I personally spent on visit and management today: 17 minutes. Time spent included review of pertinent office notes in the electronic health record; review of laboratory and imaging results; review of personal family medical history; discussing diagnosis and plan of care with the patient; documenting the encounter in the EMR. Patient presents to discuss: Ultrasound findings, history of left ovarian cystic lesion currently with low-level internal echoes and slight wall nodularity measuring 7 0.1 cm previously 6.3 cm. Currently not in any discomfort. She reports seeing Dr. Arredondo for a consult in November and had hormone tumor markers drawn, she has a follow up with Dr. Arredondo on SundayJanuary 20. [facility] Medical History (Updated 01/13/25 @ 15:08 by Aleksandra Vasques CNM) Complex ovarian cyst Ovarian mass Obesity (BMI 30.0-34.9) History of vitamin D deficiency Annual visit for general adult medical examination with abnormal findings History of anemia Dysfunctional uterine bleeding Surgical History H/O myomectomy Family History Mother Asthma Maternal Grandmother Diabetes mellitus HIV (human immunodeficiency virus infection) Social History Household Members: Significant Other Household Members Other:: nephew Housing: House Alcohol intake: current Alcohol intake frequency: holidays/special occasions only Patient Tobacco Use Status: Never used Tobacco e-Cigarette/Vaping Use: Never Used service: No Current occupational status: employed Current occupation: [employer] Sexual orientation: Straight/Heterosexual Gender identity: Female Cognitive needs: No Hearing needs: No Vision needs: Yes Female Reproductive History Menstrual Age of Menarche: 14 Telehealth Telehealth Telehealth Platform: Telephone Location of provider rendering services: practice address Location of patient: other Patient Identification confirmed using: Name, : Yes Telehealth method: voice only Patient verbally consented to treatment: Yes Patient verbally consented to billing insurance company: Yes Patient informed of any privacy concerns related to visit: Yes Results Reviewed Results Reviewed: [address] [address] Ultrasound Report Signed Patient: Giovana Wells MR#: [id number] : 1990 Acct:[id number] Age/Sex: 34 / F ADM Date: 01/09/25 Loc: HO.US Attending Dr: Aleksandra Vasques CNM Ordering Physician: Aleksandra Vasques CNM Date of Service: 01/09/25 Procedure(s): US pelvic and transvaginal Accession Number(s): [id number] cc: Karli Dale MD; Aleksandra Vasques CNM~ EXAMINATION: US PELVIS TRANSABDOMINAL AND TRANSVAGINAL HISTORY: N83.299 - Other ovarian cyst, unspecified side COMPARISON: Comparison is made with the prior examination dated 11/05/2024. TECHNIQUE: Transabdominal and endovaginal real-time 2D low-scale ultrasound was performed. FINDINGS: Uterus: The uterus is normal in size, measuring 7.6 x 3.8 x 4.5 cm. Myometrium has a normal echotexture. There is a left posterior uterine fibroid measuring 9 x 10 x 9 mm without change. Endometrium: The endometrial stripe measures 11 mm in thickness. Right ovary: The right ovary measures 3.2 x 1.3 x 1.6 cm. The right ovary is normal in size and echotexture. Left ovary: The left ovary measures 7.8 x 5.5 x 6.2 cm. Again seen is a cystic lesion with low-level internal echoes and slight wall nodularity. This measures 7.1 x 5.1 x 5.8 cm (previously 6.3 x 4.8 x 5.4 cm). Pelvic fluid: none. US/US pelvic and transvaginal IMPRESSION: Interval enlargement of the previously cystic lesion of the left ovary, which could represent a hemorrhagic cyst, endometrioma, or neoplasm. Given interval growth over 8 weeks, laparoscopy should be considered. Electronically signed by: Ravindra Kaur MD 01/09/2025 03:46 PM EDT Dictated By: Ravindra Kaur MD Signed By: <Electronically signed by Ravindra Kaur MD in OV> 01/09/25 1546 DD/ 1402 TD/TT: 01/09/25 1500 Litigation Secretary: Assessment & Plan Assessment & Plan (1) Complex ovarian cyst: Comment: Left side 7.[address] Arredondo with follow up on 01/20/2025 Code(s): N83.299 - Other ovarian cyst, unspecified side Category: Medical Plan Discussed: Left complex ovarian cyst has increased in size from 6.3 cm to 7.8 cm. Counseled on ovarian torsion risks and warnings and when to seek emergency care at [facility] ED. The patient expressed understanding and agreement with the plan of care. All of her questions and concerns were addressed to the best of my ability. Keep follow up on the with Dr. Arredondo for plan of care discussion. Ultrasound copies faxed to Dr. Arredondo department today. Additionally we will request her notes to be sent to us for review. This note is constructed using voice recognition software. While every effort has been made to ensure accuracy, off track betting manager errors may have been included. Coding Level of Care Code Tele Est Pt Level 2 (37996) Diagnoses Complex ovarian cyst N83.299
--- OUTSIDE RECORDS SUMMARY | 2025-01-13 17:51 | XMS_ITS | Data Portability ---
Author Organization [facility] [address] [address] [place] [phone] Assessment No assessment recorded. Plan of Treatment [...] By Organization Details Last Modified Time 10/11/2022 [id number] cuts closed with adhesives: care instructions Not [...] Updated DateTime 3 160.02 cm 28.3 kg/m2 33156.7 8 g 100 % 100 % 3 80 /min 18 /min 97.2 [degF] 105 mm[Hg] 73 mm[Hg] Ashantiedmar Flores [facility] - [facility] 13:11:26 Social History Question Answer Notes LastModified by Organizat ion Details LastModified Time Tobacco Smoking Status Never Smoker Ashanti Hindsclyde clarke [place] - [facility] 10/11/2022 13:12:03 What Is Your Level Of Alcohol Consumption? None [email or web address] Information not available 10/11/2022 Do You Use Any Illicit Or Recreational Drugs? No [email or web address] Information not available 10/11/2022 Do You Or [...] SNOMED-CT Code Diagnosis ICD10 Code Diagnosis Note [id number] [address] [facility] [address] [place] [address] 01/19/2019 15:34:35 01/19/2019 15:47:02 [id number] Kd Panchal MD [address] [facility] [address] [place] [address] 10/11/2022 12:06:37 10/11/2022 13:37:09 Laceration of left little finger [id number] S61.217A Wound closure strips usedKeep covered and [...] [place] Member ID Guarantor Name 01/19/2019 1 [facility] [id number] 1 Giovana Wells [id number] Giovana Wells 10/11/2022 1 [facility] [id number] 1 Giovana Wells [id number] Giovana Wells Notes Date Note Type Note Provider Name and Address Organization Details Recorded Time 3 text/html Wound / LacerationReported bypatient.Location:[place] # 1 finger Quality:laceration; Wound 1 size in cm 1.5; not bleeding Severity:mild Duration:1 hours Kd Panchal MD [facility] [place], [address], [place] - [facility] 10/11/2022 14:31:45 OBGyn Episode No OBEpisode recorded.
== END 2025-01-13 16:36 | disposition home or self-care (01) ==
LOC: HO.HWS 14:57
PROVIDERS: PCP Internal Medicine; Visit Provider Advanced Practice Midwife
DX: N83.299 Other ovarian cyst, unspecified side (principal)
CPT/HCPCS: 98012

== ENCOUNTER → 2025-01-13 14:57 | Outpatient (BNVA) | payer OTHER, SELFPAY | PROVIDERS: PCP Internal Medicine; Visit Provider Advanced Practice Midwife ==